=== PATIENT | female | born 1950 | race African-American/Black ===

== ENCOUNTER 2017-03-10 06:19 | Day surgery (SDC) | payer MEDICARE, MEDICAID ==
[~2017-03-10 06:19] MED LIST: ASCO500T8 PO; ASPI81TA2 PO; BACL10TA PO; GABA400C PO; IPRA14.7 IH; LIDO30AD10 TP; LORA-258 PO; MONT10TA22 PO; OMEP40CA37 PO; OXYC-128 PO; POTA8TAB3 PO; SERT50TA PO; SIMV20TA6 PO; TAMS-12 PO; TEMA30CA5 PO; TRIA1CAP14 PO; TYL2T PO; ZOLP10TA2 PO
[2017-03-10] MEDS ORDERED: TRIAMCINOLONE ACETONIDE 50 MG/5 ML VIAL IJ ONE (06:20)
[2017-03-10] MEDS ORDERED: TRIAMCINOLONE ACETONIDE SUSP 40 MG/ML 1 ML ONE (07:43)
[2017-03-10] MEDS ORDERED: IOHEXOL 240MG/ML 50 ML IV ONE (07:43)
[2017-03-10] MEDS ORDERED: BUPIVACAINE 0.25% 75 MG/30 ML VIAL ONE (07:43)
[2017-03-10] MEDS ORDERED: IV LR 1000 ML 1,000 ML ONE (09:38)
[2017-03-10] MEDS ORDERED: IV SET PRIMARY 1 EA INFUS.SET MC ONE (09:38)
== END 2017-03-10 12:31 | disposition home health service (06) ==
LOC: DS 06:19
PROVIDERS: ATTEND Physical Medicine & Rehabilitation Pain Medicine
DX: M47.817 Spondylosis without myelopathy or radiculopathy, lumbosacral region (principal); M53.3 Sacrococcygeal disorders, not elsewhere classified; K21.9 Gastro-esophageal reflux disease without esophagitis; I10 Essential (primary) hypertension; J44.9 Chronic obstructive pulmonary disease, unspecified; Z86.73 Personal history of transient ischemic attack (TIA), and cerebral infarction without residual deficits
CPT/HCPCS: 71010-TC; 72020-TC; A6402; J2704; J3301; J3490; J7120; Q9966

== ENCOUNTER → 2017-07-28 | Day surgery (SDC) | payer MEDICARE, MEDICAID ==
[~2017-07-28] MED LIST changes: +BUPIVACAINE 0.25% 75 MG/30 ML VIAL ONE; +FENTANYL PF 100MCG/2ML AMPUL ONE; +IOHEXOL 50 ML IV ONE; +TRIAMCINOLONE ACETONIDE SUSP 40 MG/ML 1 ML ONE
[2017-07-28 07:15] LABS: BASOPHILS # (AUTO) 0.4 /CMM (0.0-0.2); EOSINOPHILS # (AUTO) 0.2 /CMM (0.0-0.7); EOSINOPHILS % (AUTO) 3.1 % (0.0-6.0); HEMATOCRIT 39 % (33-45); HEMOGLOBIN 12.8 g/dL (11.5-14.8); LYMPHOCYTES # (AUTO) 3.2 /CMM (0.8-4.8); LYMPHOCYTES % (AUTO) 47.2 % (20.0-44.0); MEAN CORPUSCULAR HEMOGLOBIN 32 PG (26.0-33.0); MEAN CORPUSCULAR HGB CONC 33 g/dl (31.0-36.0); MEAN CORPUSCULAR VOLUME 98 fL (82-100); MONOCYTES # (AUTO) 0.6 /CMM (0.1-1.30); MONOCYTES % (AUTO) 9.1 % (2.0-12.0); NEUTROPHILS # (AUTO) 2.3 /CMM (1.8-8.9); NEUTROPHILS % (AUTO) 34.5 % (43.0-81.0); PLATELET COUNT (AUTO) 244 /CMM (150-450); RDW COEFFICIENT OF VARIATION 13.3 (11.5-15.0); RED BLOOD CELL COUNT(AUTO) 4.01 MIL/uL (4.0-5.2); WHITE BLOOD COUNT (AUTO) 6.8 K/uL (4.3-11.0)
[2017-07-28 07:17] LABS: BASOPHILS % (AUTO) 6.1 % (0.0-2.0)
[2017-07-28 07:24] LABS: CALCIUM, SERUM 9.2 mg/dL (8.5-10.1); CREATININE 0.9 mg/dL (0.6-1.3)
[2017-07-28 09:56] LABS: BAND % (MANUAL) 1 % (0.0-5.0); EOSINOPHILS % (MANUAL) 2 % (0-4); LYMPHOCYTES % (MANUAL) 56 % (16-48); MONOCYTES % (MANUAL) 11 % (0-11.0); NEUTROPHILS % (MANUAL) 30 (42-76)
== END | disposition home or self-care (01) ==
LOC: DS 05:54
PROVIDERS: ATTEND Physical Medicine & Rehabilitation Pain Medicine
DX: M51.16 Intervertebral disc disorders with radiculopathy, lumbar region (principal); J44.9 Chronic obstructive pulmonary disease, unspecified; I10 Essential (primary) hypertension; G81.90 Hemiplegia, unspecified affecting unspecified side; Z86.73 Personal history of transient ischemic attack (TIA), and cerebral infarction without residual deficits
CPT/HCPCS: 36415; 71010-TC; 72220-TC; 80048-TC; 85025-TC; A6402; J2704; J3010; J3490; Q9967

== ENCOUNTER 2017-11-24 10:08 | Day surgery (SDC) | payer MEDICARE, MEDICAID ==
[~2017-11-24 10:08] MED LIST changes: +ASPI-1169 PO; -ASPI81TA2 PO; -BUPIVACAINE 0.25% 75 MG/30 ML VIAL ONE; -FENTANYL PF 100MCG/2ML AMPUL ONE; -IOHEXOL 50 ML IV ONE; -TRIAMCINOLONE ACETONIDE SUSP 40 MG/ML 1 ML ONE
[2017-11-24 10:53] LABS: BASOPHILS # (AUTO) 0.1 /CMM (0.0-0.2); BASOPHILS % (AUTO) 1.4 % (0.0-2.0); EOSINOPHILS # (AUTO) 0.1 /CMM (0.0-0.7); EOSINOPHILS % (AUTO) 2.1 % (0.0-6.0); HEMATOCRIT 39 % (33-45); HEMOGLOBIN 12.6 g/dL (11.5-14.8); LYMPHOCYTES # (AUTO) 2.2 /CMM (0.8-4.8); LYMPHOCYTES % (AUTO) 36.3 % (20.0-44.0); MEAN CORPUSCULAR HEMOGLOBIN 31 PG (26.0-33.0); MEAN CORPUSCULAR HGB CONC 33 g/dl (31.0-36.0); MEAN CORPUSCULAR VOLUME 96 fL (82-100); MONOCYTES # (AUTO) 0.7 /CMM (0.1-1.30); MONOCYTES % (AUTO) 11.8 % (2.0-12.0); NEUTROPHILS % (AUTO) 48.4 % (43.0-81.0); PLATELET COUNT (AUTO) 234 /CMM (150-450); RDW COEFFICIENT OF VARIATION 13.9 (11.5-15.0); RED BLOOD CELL COUNT(AUTO) 4.03 MIL/uL (4.0-5.2); WHITE BLOOD COUNT (AUTO) 6.1 K/uL (4.3-11.0)
[2017-11-24 11:15] LABS: INR 0.97 (0.87-1.13)
[2017-11-24 12:05] VITALS: BP 124/81
[2017-11-24] MEDS ORDERED: methylPREDNISolone ACETATE 80 MG/ML VIAL ONE (13:30)
[2017-11-24] MEDS ORDERED: TRIAMCINOLONE ACETONIDE SUSP 40 MG/ML 1 ML ONE (13:30)
[2017-11-24] MEDS ORDERED: IOHEXOL 50 ML IV ONE (13:40)
--- NOTE | 2017-11-24 15:19 | NUR ---
MS1/DENTAL SURGERY DOCTOR COMPLETED PT RETURNED TO ROOM S/P LUMBAR STEROID INJECTION PERFORMED BY DR. CAREY. PER OR NURSE PT ORDERED TO BE DISCHARGE BACK TO SNF. ORDER NOTED AND CARRIED.
[2017-11-24 16:00] VITALS: BP 144/78
--- NOTE | 2017-11-24 17:58 | NUR ---
MS1/HARNESS FITTER - SNF PT LEFT MS1 UNIT IN STABLE CONDITION VIA GURNEY. IV SITE REMOVED, PRESSURE DRESSING APPLIED, NO S/S OF INFECTION. ID BAND REMOVED. PT LEFT ACCOMPANIED BY TRANSPORT PERSONNEL.
== END 2017-11-24 16:00 | disposition home or self-care (01) ==
LOC: DS 10:08 → UNDOADMIN 10:23 → MEDSG1 10:23 → DS 16:00 → UNDODISIN 17:58
PROVIDERS: ATTEND Physical Medicine & Rehabilitation Pain Medicine
DX: M54.16 Radiculopathy, lumbar region (principal); M51.37 Other intervertebral disc degeneration, lumbosacral region; I10 Essential (primary) hypertension; J45.909 Unspecified asthma, uncomplicated; E66.3 Overweight; Z86.73 Personal history of transient ischemic attack (TIA), and cerebral infarction without residual deficits
CPT/HCPCS: 36415; 62323; 71045; 72020; 85025; 85610; 93005; A6402; J1040; J2704; J3490; Q9967; Z7610

== ENCOUNTER 2019-10-10 14:19 | Emergency (ER) | payer MEDICARE, OTHER ==
[~2019-10-10] VITALS: Ht 167.6 cm; Wt 93.4 kg
[~2019-10-10 14:19] MED LIST changes: -ASCO500T8 PO; +ASCO500T87 PO; +OMEP40CA13 PO; -OMEP40CA37 PO; +SIMV-46 PO; -SIMV20TA6 PO
[2019-10-10] MEDS ORDERED: HYDR-4384 PO (14:54)
[2019-10-10] MEDS ORDERED: LIDO30CR47 TP (14:54)
[2019-10-10] MEDS ORDERED: ATOR10TA PO (14:54)
[2019-10-10] MEDS ORDERED: CYCL30DR EACHEYE (14:54)
[2019-10-10] MEDS ORDERED: DICL50TA PO (14:54)
[2019-10-10] MEDS ORDERED: RISP0.2515 PO (14:54)
[2019-10-10] MEDS ORDERED: ACET-2605 PO (14:54)
[2019-10-10] MEDS ORDERED: TEMA7.5C12 PO (14:54)
[2019-10-10] MEDS ORDERED: ALBU8.5H8 IH (14:54)
[2019-10-10] MEDS ORDERED: POLY15DR40 EACHEYE (14:54)
[2019-10-10] MEDS ORDERED: ONDA4TAB5 PO (14:54)
[2019-10-10] MEDS ORDERED: MELA3TAB63 PO (14:54)
[2019-10-10] MEDS ORDERED: OMEG1CAP PO (14:54)
[2019-10-10] MEDS ORDERED: BROM1.7D9 EACHEYE (14:54)
[2019-10-10 14:58] LABS: BASOPHILS # (AUTO) 0.2 /CMM (0.0-0.2); EOSINOPHILS % (AUTO) 1.9 % (0.0-6.0); HEMATOCRIT 44 % (33-45); LYMPHOCYTES # (AUTO) 2.5 /CMM (0.8-4.8); MEAN CORPUSCULAR HGB CONC 32 g/dl (31.0-36.0); MEAN CORPUSCULAR VOLUME 97 fL (82-100); MONOCYTES # (AUTO) 0.7 /CMM (0.1-1.30); MONOCYTES % (AUTO) 8.6 % (2.0-12.0); NEUTROPHILS # (AUTO) 4.5 /CMM (1.8-8.9); NEUTROPHILS % (AUTO) 56.5 % (43.0-81.0); PLATELET COUNT (AUTO) 186 /CMM (150-450); RED BLOOD CELL COUNT(AUTO) 4.48 MIL/uL (4.0-5.2)
[2019-10-10] MEDS ORDERED: MORPHINE SULFATE INJ 2 MG/ML DISP.SYRIN IV ONE (15:00)
--- NOTE | 2019-10-10 15:06 | NUR ---
GEO RAMIREZ 88 From [facility] "Staff went in and she wasnt responding like usual BS 132". PT DROWSY, WILL ANSWER QUESTIONS BUT WILL GO BACK TO SLEEP, VSS. RR EVEN & UNLABORED. DENIES CP, SOB, DIZZINESS, N/V, WEAKNESS @ THIS TIME. PT SEEN & EVAL'D BY DR. YOST. PLACED ON DRILL DOCTOR & WILL CONT TO MONITOR.
[2019-10-10 15:15] LABS: CALCIUM, SERUM 8.9 mg/dL (8.5-10.1); CARBON DIOXIDE 25 mmol/L (21-32); CHLORIDE 110 mmol/L (98-107); CREATININE 1.7 mg/dL (0.6-1.3); GLUCOSE 126 mg/dL (74-106); POTASSIUM 4.1 mmol/L (3.5-5.1); SODIUM SERUM 146 mmol/L (136-145); UREA NITROGEN, BLOOD 48 mg/dL (7-18)
[2019-10-10 15:21] LABS: ALANINE AMINOTRANSFERASE 24 U/L (12-78); ALBUMIN 3.3 g/dL (3.4-5.0); ALKALINE PHOSPHATASE 151 U/L (46-116); ASPARTATE AMINOTRANSFERASE 19 U/L (15-37); BILIRUBIN,DIRECT 0.1 mg/dL (0.0-0.2); BILIRUBIN,TOTAL 0.3 mg/dL (0.2-1.0); TOTAL PROTEIN, SERUM 7.5 g/dL (6.4-8.2)
[2019-10-10] MEDS ORDERED: IV NS 0.9% 1,000 ML BAG IV ONE (16:00)
--- NOTE | 2019-10-10 16:33 | NUR ---
[facility]ney link in [facility] - 10/10/19 at 1635 by SEVEN CALLED NINFA HOLLEY LOLLY. [id number]. TRIP NUMBER [id number].
--- NOTE | 2019-10-10 16:57 | NUR ---
CALLED [facility] RAIZA CROWLEY.
--- NOTE | 2019-10-10 17:18 | NUR ---
PAGED DR. MEJIA.
[2019-10-10 17:23] LABS: APPEARANCE,URINE CLEAR (CLEAR); BILIRUBIN,URINE NEGATIVE (NEGATIVE); BLOOD, URINE NEGATIVE Ery/uL (NEGATIVE); COLOR,URINE YELLOW (YELLOW); KETONES,URINE NEGATIVE (NEGATIVE); LEUKOCYTE ESTERASE ,URINE NEGATIVE (NEGATIVE); NITRITE, URINE NEGATIVE (NEGATIVE); PH,URINE 5.5 (5.0-8.0); PROTEIN,URINE NEGATIVE (NEGATIVE); UGLUCOSE NEGATIVE (NEGATIVE); UROBILINOGEN,URINE 0.2 EU/dL (0.2)
--- NOTE | 2019-10-10 17:31 | NUR ---
CALLED NURSING SUP FOR TELE BED.
--- NOTE | 2019-10-10 17:56 | NUR ---
CALLED [place] FOR TRANSPORT TO [facility].
--- NOTE | 2019-10-10 18:01 | NUR ---
ETA FOR [facility] 10 MINUTES.
--- NOTE | 2019-10-10 18:30 | NUR ---
Patient discharged to home in stable condition. Written and verbal after care instructions given. Patient verbalizes understanding of instruction. IV removed. Catheter intact and site benign. Pressure and 4x4 applied to site. No bleeding noted.
--- NOTE | 2019-10-10 18:30 | NUR ---
PT EN ROUTE TO [facility] VIA S WITH [facility].
[2019-10-10 19:41] VITALS: BP 127/83
== END 2019-10-10 19:41 ==
LOC: ER 14:30
DX: R41.82 Altered mental status, unspecified (principal); E86.0 Dehydration; I10 Essential (primary) hypertension; E11.9 Type 2 diabetes mellitus without complications; Z86.73 Personal history of transient ischemic attack (TIA), and cerebral infarction without residual deficits; Z79.899 Other long term (current) drug therapy; Z79.82 Long term (current) use of aspirin
CPT/HCPCS: 36415; 71045; 80048; 80076; 81001; 83605 ×2; 83880; 84484; 85025; 87081; 87086; 93005; 96360; 99284; J7030; 81000-TC

== ENCOUNTER 2024-05-31 15:19 | Emergency (ER) | payer MEDICARE, OTHER ==
[~2024-05-31] VITALS: Ht 167.6 cm; Wt 102.1 kg
[~2024-05-31 15:19] MED LIST changes: +ACET-2605 PO; +ALBU8.5H8 IH; -ASCO500T87 PO; +ATOR10TA PO; +BROM1.7D9 EACHEYE; +CALC-494 PO; +CHOL100043 PO; +CLON0.1T PO; +CYAN-6 IM; +CYCL30DR EACHEYE; +DOCU-141 PO; +DULO30CA2 PO; -IPRA14.7 IH; +LIDO30CR47 TP; -LORA-258 PO; +MELA3TAB41 PO; +OMEG1CAP PO; -OMEP40CA13 PO; +OMEP40CA21 PO; -OXYC-128 PO; +POLY15DR40 EACHEYE; +POLY17PO4 PO; -POTA8TAB3 PO; -SERT50TA PO; -SIMV-46 PO; +SUCR1ORA15 PO; -TAMS-12 PO; -TEMA30CA5 PO; +TRAM50TA2 PO; -TRIA1CAP14 PO; -ZOLP10TA2 PO
[2024-05-31] MEDS: IV NS 0.9% 1,000 ML BAG IV ONE (15:35)
[2024-05-31 16:20] LABS: BASOPHILS # (AUTO) 0.2 K/uL (0.0-0.2); BASOPHILS % (AUTO) 2.1 % (0.0-2.0); EOSINOPHILS # (AUTO) 0.2 K/uL (0.0-0.7); EOSINOPHILS % (AUTO) 1.9 % (0.0-6.0); HEMATOCRIT 38 % (33-45); HEMOGLOBIN 12.1 g/dL (11.5-14.8); LYMPHOCYTES # (AUTO) 3.4 K/uL (0.8-4.8); LYMPHOCYTES % (AUTO) 39.8 % (20.0-44.0); MEAN CORPUSCULAR HEMOGLOBIN 29 PG (26.0-33.0); MEAN CORPUSCULAR HGB CONC 32 g/dl (31.0-36.0); MEAN CORPUSCULAR VOLUME 91 fL (82-100); MONOCYTES # (AUTO) 0.3 K/uL (0.1-1.30); NEUTROPHILS # (AUTO) 4.4 K/uL (1.8-8.9); NEUTROPHILS % (AUTO) 52.2 % (43.0-81.0); PLATELET COUNT (AUTO) 213 K/uL (150-450); RED BLOOD CELL COUNT(AUTO) 4.17 MIL/uL (4.0-5.2); RED CELL DISTRIBUTION WIDTH 16.4 % (11.5-15.0); WHITE BLOOD COUNT (AUTO) 8.5 K/uL (4.3-11.0)
[2024-05-31 16:44] LABS: ALANINE AMINOTRANSFERASE 11 U/L (12-78); ALKALINE PHOSPHATASE 98 U/L (46-116); ASPARTATE AMINOTRANSFERASE 12 U/L (15-37); BILIRUBIN,DIRECT 0.1 mg/dL (0.0-0.2); BILIRUBIN,TOTAL 0.4 mg/dL (0.2-1.0); CALCIUM, SERUM 9.1 mg/dL (8.5-10.1); CARBON DIOXIDE 26 mmol/L (21-32); CHLORIDE 110 mmol/L (98-107); GLUCOSE 122 mg/dL (74-106); POTASSIUM 3.8 mmol/L (3.5-5.1); SODIUM SERUM 143 mmol/L (136-145); TOTAL PROTEIN, SERUM 7.3 g/dL (6.4-8.2); UREA NITROGEN, BLOOD 17 mg/dL (7-18)
[2024-05-31 18:31] VITALS: BP 119/60; TEMP 97.6; O2SAT 98
== END 2024-05-31 23:21 ==
LOC: ER 15:25
DX: R55 Syncope and collapse (principal); I10 Essential (primary) hypertension; E78.00 Pure hypercholesterolemia, unspecified; J44.9 Chronic obstructive pulmonary disease, unspecified; E11.9 Type 2 diabetes mellitus without complications; F32.A Depression, unspecified; F20.9 Schizophrenia, unspecified; Z79.1 Long term (current) use of non-steroidal anti-inflammatories (NSAID); Z79.82 Long term (current) use of aspirin; Z79.899 Other long term (current) drug therapy
CPT/HCPCS: 99284; 96360; 71045; 85025; 80048; 80076; 36415; 84484; J7030; A4223

== ENCOUNTER 2025-04-15 18:07 | Emergency (ER) | payer MEDICARE, OTHER ==
[~2025-04-15] VITALS: Ht 152.4 cm; Wt 87.1 kg
[2025-04-15 18:11] VITALS: TEMP 97.7
[2025-04-15] MEDS ORDERED: ACET-2605 PO (18:47)
[2025-04-15 19:25] VITALS: BP 158/58; O2SAT 94
[2025-04-16] MEDS ORDERED: ACET-73 PO (11:53)
[2025-04-16] MEDS ORDERED: NA P133E RC (11:53)
[2025-04-16] MEDS ORDERED: LACT1CAP61 PO (11:53)
[2025-04-16] MEDS ORDERED: DULO60CA64 PO (11:53)
[2025-04-16] MEDS ORDERED: MAG-55 PO (11:53)
[2025-04-16] MEDS ORDERED: OXYC1TAB12 PO (11:54)
== END 2025-04-15 20:41 ==
LOC: ER 18:13
DX: R60.0 Localized edema (principal); I10 Essential (primary) hypertension; G89.29 Other chronic pain; F32.A Depression, unspecified; F20.9 Schizophrenia, unspecified; E11.9 Type 2 diabetes mellitus without complications; I69.354 Hemiplegia and hemiparesis following cerebral infarction affecting left non-dominant side; J44.89 Other specified chronic obstructive pulmonary disease; Z79.4 Long term (current) use of insulin; Z79.621 Long term (current) use of calcineurin inhibitor; Z79.82 Long term (current) use of aspirin; Z79.899 Other long term (current) drug therapy; W07.XXXA Fall from chair, initial encounter; Y93.89 Activity, other specified; Y92.89 Other specified places as the place of occurrence of the external cause; Y99.8 Other external cause status
CPT/HCPCS: 72170-TC

== ENCOUNTER 2025-04-16 11:10 | Inpatient (IN) | payer MEDICARE, OTHER ==
[~2025-04-16] VITALS: Ht 152.4 cm; Wt 83.0 kg
[2025-04-16 11:42] LABS: ABG BASE EXCESS -0.9 mmol/L (-2.0-3.0); ABG OXYGEN SATURATION 95.4 % (94.0-98.0); ABG PCO2 36.4 mmHg (32.0-45.0); ABG PH 7.422 (7.350-7.450); ABG PO2 82.0 mmHg (83.0-108.0); ABG TOTAL HEMOGLOBIN 12.0 G/dL (12.0-16.0); FRACTIONATED INSPIRED OXYGEN 21.0 %; SITE, ABG RIGHT RADIAL
[2025-04-16 11:46] LABS: PLATELET COUNT (AUTO) 183 K/uL (150-450); RED BLOOD CELL COUNT(AUTO) 3.88 MIL/uL (4.0-5.2); RED CELL DISTRIBUTION WIDTH 15.4 % (11.5-15.0); WHITE BLOOD COUNT (AUTO) 6.6 K/uL (4.3-11.0)
[2025-04-16] MEDS ORDERED: DULO60CA64 PO (11:53)
[2025-04-16] MEDS ORDERED: NA P133E RC (11:53)
[2025-04-16] MEDS ORDERED: MAG-55 PO (11:53)
[2025-04-16] MEDS ORDERED: LACT1CAP61 PO (11:53)
[2025-04-16] MEDS ORDERED: ACET-73 PO (11:53)
[2025-04-16] MEDS ORDERED: OXYC1TAB12 PO (11:54)
[2025-04-16 11:56] LABS: CALCIUM, SERUM 8.6 mg/dL (8.5-10.1); CREATININE 0.9 mg/dL (0.6-1.3); SODIUM SERUM 141 mmol/L (136-145); UREA NITROGEN, BLOOD 15 mg/dL (7-18)
[2025-04-16 12:06] LABS: ASPARTATE AMINOTRANSFERASE 26 U/L (15-37); LACTIC ACID 1.3 mmol/L (0.4-2.0)
[2025-04-16 12:11] LABS: CREATINE KINASE, TOTAL 936 U/L (26-192); TOTAL PROTEIN, SERUM 7.9 g/dL (6.4-8.2)
[2025-04-16] MEDS: PIPERACILLIN /TAZOBACTAM 3.375 G in IV D5W 50 ML IV STA (12:45)
[2025-04-16 12:52] LABS: INR 1.04 (0.91-1.10)
[2025-04-16 13:27] LABS: APPEARANCE,URINE CLEAR (CLEAR); BLOOD, URINE NEGATIVE Ery/uL (NEGATIVE); LEUKOCYTE ESTERASE ,URINE NEGATIVE (NEGATIVE); NITRITE, URINE NEGATIVE (NEGATIVE); UGLUCOSE NEGATIVE (NEGATIVE)
[2025-04-16 13:30] VITALS: BP 163/63; TEMP 98.1; O2SAT 97
[2025-04-16 13:42] LABS: ADD URINE CULTURE NO; SQUAMOUS EPITHELIAL CELL,UR 0-2 /HPF (None Seen)
[2025-04-16 14:38] LABS: EOSINOPHILS % (MANUAL) 1 % (0-4); LYMPHOCYTES % (MANUAL) 18 % (16-48); MONOCYTES % (MANUAL) 17 % (0-11.0); NEUTROPHILS % (MANUAL) 64 (42-76); PLATELET ESTIMATE ADEQUATE
[2025-04-16] MEDS ORDERED: ONDANSETRON HCL/PF 4 MG/2 ML VIAL IVP PRN (15:00)
[2025-04-16] MEDS ORDERED: DOSING PER PHARMACY-VANCOMYCIN IV XX PRN (15:00)
[2025-04-16] MEDS ORDERED: POLYVINYL ALCOHOL 15 ML BOTTLE EACHEYE PRN (15:00)
[2025-04-16] MEDS ORDERED: Z GUARD REMEDY 4 OZ OINT TP PRN (15:00)
[2025-04-16] MEDS ORDERED: POLYETHYLENE GLYCOL 3350 17 GM POWD.PACK PO PRN (15:00)
[2025-04-16] MEDS: ENOXAPARIN SODIUM 40 MG/0.4 ML DISP.SYRIN SQ SCH (15:43)
[2025-04-16 16:05] VITALS: BP 149/92; TEMP 98.6; O2SAT 96
[2025-04-16] MEDS: VANCOMYCIN 1 GM in IV D5W 250ml IV ONE (16:19)
[2025-04-16] MEDS: DOCUSATE SODIUM 100 MG CAPSULE PO SCH (16:23)
[2025-04-16] MEDS: BACLOFEN (10 MG) 10 MG TABLET PO SCH (16:23)
[2025-04-16] MEDS: GABAPENTIN 400 MG CAPSULE PO SCH (16:23)
[2025-04-16 20:00] VITALS: BP 172/69; TEMP 98.8; O2SAT 96
[2025-04-16] MEDS: CLONIDINE HCL 0.1 MG TABLET PO PRN (20:40)
[2025-04-16] MEDS: DULOXETINE HCL 30 MG CAPSULE.DR PO SCH (21:08)
[2025-04-16] MEDS: ATORVASTATIN 10 MG TABLET PO SCH (21:09)
[2025-04-16] MEDS: CEFEPIME 2 GM in IV D5W 100 ML IV SCH (21:09)
[2025-04-16] MEDS: MONTELUKAST SODIUM (10MG) 10 MG TABLET PO SCH (21:09)
[2025-04-17] VITALS (7 sets, daily range): BP systolic 124–167; BP diastolic 58–87; TEMP 97.7–98.9; O2SAT 96–98
[2025-04-17 07:25] LABS: PLATELET COUNT (AUTO) 171 K/uL (150-450); RED BLOOD CELL COUNT(AUTO) 3.85 MIL/uL (4.0-5.2); RED CELL DISTRIBUTION WIDTH 14.9 % (11.5-15.0); WHITE BLOOD COUNT (AUTO) 5.4 K/uL (4.3-11.0)
[2025-04-17] MEDS: PANTOPRAZOLE 40 MG TABLET.DR PO SCH (08:10)
[2025-04-17 08:41] LABS: CALCIUM, SERUM 8.6 mg/dL (8.5-10.1); CREATININE 1.0 mg/dL (0.6-1.3); PHOSPHORUS 2.5 mg/dL (2.5-4.9); SODIUM SERUM 139.0 mmol/L (136-145); UREA NITROGEN, BLOOD 14.0 mg/dL (7-18)
[2025-04-17] MEDS: CALCIUM CARBONATE 500 MG TAB.CHEW PO SCH (08:51)
[2025-04-17] MEDS: ASPIRIN 81 MG TAB.CHEW PO SCH (08:52)
[2025-04-17] MEDS: CHOLECALCIFEROL 1,000 UNIT TABLET (VIT D3) PO SCH (08:52)
[2025-04-17] MEDS: ACIDOPHILUS/BULGARICUS 1 EACH TAB.CHEW PO SCH (08:52)
[2025-04-17] MEDS ORDERED: Medication Not On Formulary EA (Omega-3 Fatty Acids/Fish Oil (Fish Oil 1,000 Mg Capsule) PO SCH (09:00)
[2025-04-17] MEDS ORDERED: Medication Not On Formulary EA (Bromfenac Sodium 1 DROP) EACHEYE SCH (09:00)
[2025-04-17] MEDS: ACETAMINOPHEN 325 MG TABLET PO PRN (09:55)
[2025-04-17 11:14] LABS: LYMPHOCYTES % (MANUAL) 31 % (16-48); MONOCYTES % (MANUAL) 16 % (0-11.0); NEUTROPHILS % (MANUAL) 53 (42-76); PLATELET ESTIMATE ADEQUATE
[2025-04-17] MEDS: REMDESIVIR (CHARGED) 200 MG, *LOADING DOSE 1 EA in IV NS 0.9% 210 ML IV ONE (14:44)
[2025-04-17] MEDS: VANCOMYCIN HCL 1.25 GM in IV D5W 250 ML IV SCH (16:26)
[2025-04-18] VITALS (7 sets, daily range): BP systolic 114–168; BP diastolic 55–77; TEMP 97.7–99.1; O2SAT 93–99
[2025-04-18 08:14] LABS: PLATELET COUNT (AUTO) 181 K/uL (150-450); RED BLOOD CELL COUNT(AUTO) 3.86 MIL/uL (4.0-5.2); RED CELL DISTRIBUTION WIDTH 15.1 % (11.5-15.0); WHITE BLOOD COUNT (AUTO) 4.6 K/uL (4.3-11.0)
[2025-04-18 08:28] LABS: INR 1.02 (0.91-1.10)
[2025-04-18 08:47] LABS: ASPARTATE AMINOTRANSFERASE 31.0 U/L (15-37); CALCIUM, SERUM 8.4 mg/dL (8.5-10.1); CREATININE 0.8 mg/dL (0.6-1.3); PHOSPHORUS 2.9 mg/dL (2.5-4.9); SODIUM SERUM 144.0 mmol/L (136-145); TOTAL PROTEIN, SERUM 7.0 g/dL (6.4-8.2); UREA NITROGEN, BLOOD 12.0 mg/dL (7-18)
[2025-04-18 09:30] LABS: EOSINOPHILS % (MANUAL) 2 % (0-4); LYMPHOCYTES % (MANUAL) 38 % (16-48); MONOCYTES % (MANUAL) 16 % (0-11.0); NEUTROPHILS % (MANUAL) 44 (42-76)
[2025-04-18 09:31] LABS: PLATELET ESTIMATE PLATE
[2025-04-18] MEDS: oxyCODONE/APAP (5/325 MG) 1 UDTAB TABLET PO PRN (13:12)
[2025-04-18] MEDS: REMDESIVIR (CHARGED) 100 MG in IV NS 0.9% 80 ML IV SCH (15:29)
[2025-04-19] VITALS (7 sets, daily range): BP systolic 110–160; BP diastolic 61–92; TEMP 97.7–98.2; O2SAT 93–98
[2025-04-19 07:48] LABS: PLATELET COUNT (AUTO) 203 K/uL (150-450); RED BLOOD CELL COUNT(AUTO) 4.17 MIL/uL (4.0-5.2); RED CELL DISTRIBUTION WIDTH 15.2 % (11.5-15.0); WHITE BLOOD COUNT (AUTO) 4.7 K/uL (4.3-11.0)
[2025-04-19 07:59] LABS: INR 1.07 (0.91-1.10)
[2025-04-19 08:27] LABS: ASPARTATE AMINOTRANSFERASE 30.0 U/L (15-37); CALCIUM, SERUM 8.9 mg/dL (8.5-10.1); CREATININE 0.9 mg/dL (0.6-1.3); PHOSPHORUS 3.0 mg/dL (2.5-4.9); SODIUM SERUM 142.0 mmol/L (136-145); TOTAL PROTEIN, SERUM 7.3 g/dL (6.4-8.2); UREA NITROGEN, BLOOD 16.0 mg/dL (7-18)
[2025-04-19] MEDS: AMLODIPINE BESYLATE 5 MG TABLET PO SCH (08:52)
[2025-04-19] MEDS ORDERED: CEFE2FRO IV (14:18)
== END 2025-04-19 21:01 | DRG 177 ==
LOC: ER 11:13 → TELE1 12:06 → MEDSG1 04-19 14:25
PROVIDERS: ADMIT Nurse Practitioner Family; ATTEND Nurse Practitioner Family
PROC: XW033E5 Introduction of Remdesivir Anti-infective into Peripheral Vein, Percutaneous Approach, New Technology Group 5 (ICD-10-PCS; principal; 2025-04-17)
DX: U07.1 COVID-19 (principal); G93.41 Metabolic encephalopathy; J15.9 Unspecified bacterial pneumonia; J12.82 Pneumonia due to coronavirus disease 2019; E44.1 Mild protein-calorie malnutrition; I69.354 Hemiplegia and hemiparesis following cerebral infarction affecting left non-dominant side; J44.0 Chronic obstructive pulmonary disease with (acute) lower respiratory infection; I42.9 Cardiomyopathy, unspecified; N17.9 Acute kidney failure, unspecified; K21.9 Gastro-esophageal reflux disease without esophagitis; E78.5 Hyperlipidemia, unspecified; E86.0 Dehydration; I10 Essential (primary) hypertension; Z79.82 Long term (current) use of aspirin; Z87.891 Personal history of nicotine dependence; E88.09 Other disorders of plasma-protein metabolism, not elsewhere classified; E11.9 Type 2 diabetes mellitus without complications; F32.A Depression, unspecified; F20.9 Schizophrenia, unspecified; F29 Unspecified psychosis not due to a substance or known physiological condition; G89.4 Chronic pain syndrome; Z91.81 History of falling
CPT/HCPCS: 36415; 36600; 70450-TC; 71045-TC; 72170-TC; 80048-TC; 80053-TC; 80076-TC; 80202-TC; 81001; 82550-TC; 82553; 82728-TC; 82803-TC; 83605-TC; 83615-TC; 83735-TC; 83880; 84100-TC; 84484-TC; 85025-TC; 85027-TC; 85378-TC; 85610-TC; 85730-TC; 86140-TC; 87040-TC; 87081-TC; 87086-TC; 97110-TC; 97112-TC; 97530-TC; A4216; G0378; J0692; J1650; J2048; J2543; J3373; J7030; J7050; J7060